=== PATIENT | female | born 1980 | race Caucasian/White ===

== ENCOUNTER 2017-01-04 06:48 | Day surgery (SDC) | payer OTHER ==
[~2017-01-04] VITALS: Ht 157.5 cm; Wt 75.8 kg
[~2017-01-04 06:48] MED LIST: ATARAX25 MG PO; BACTRIM DS TAB1 EACH PO; BACTROBAN22 GM TOP; CYMBALTA60 MG PO; DEXMETHYLPHENID20 MG PO; DEXMETHYLPHENID40 MG PO; JOLESSA 0.15 M1 EACH PO; SEROQUEL100 MG PO; XANAX1 MG PO
== END 2017-01-04 07:40 | disposition short-term general hospital (02) ==
LOC: SURGOP 06:48
DX: K92.1 Melena (principal); Z80.0 Family history of malignant neoplasm of digestive organs; Z53.8 Procedure and treatment not carried out for other reasons; Z88.1 Allergy status to other antibiotic agents
CPT/HCPCS: J2175; J2250